=== PATIENT | male | born 1955 | race Two or more races ===

== ENCOUNTER 2020-11-25 15:37 | Emergency (ER) | payer SELFPAY ==
[2020-11-25 18:23] LABS: BILIRUBIN NEGATIVE (NEGATIVE); BLOOD NEGATIVE Ery/uL (NEGATIVE); CLARITY CLEAR (CLEAR); COLOR YELLOW (YELLOW); GLUCOSE (U) 1+ mg/dL (NORMAL); LEUKOCYTES NEGATIVE Leu/uL (NEGATIVE); NITRITE NEGATIVE (NEGATIVE); PROTEIN NEGATIVE (NEGATIVE); UROBILINOGEN 0.2 mg/dL (0.2-1.0)
[2020-11-25 20:09] LABS: BASOPHIL 0.4 % (0-2); EOSINOPHIL 0.2 % (0-5); HGB 16.5 g/dl (13.2-18.0); LYMPHOCYTE 36.3 % (15-48); MCH 31.4 pg (25.0-31.0); MCV 95.1 fL (78.0-100.0); MONOCYTE 10.2 % (0-12); NEUTROPHIL 52.5 % (41-80); NRBC 0; PLT 128 K/uL (150-400); RBC 5.26 M/uL (4.70-6.00); RDW 12.6 % (11.5-14.0); WBC 5.6 K/uL (4.0-10.5)
[2020-11-25 20:19] LABS: ALBUMIN 3.8 g/dL (3.4-5.0); BILIRUBIN - TOTAL 0.3 mg/dL (0.2-1.0); BUN/CREAT RATIO (CALC) 15.8 RATIO; CREATININE 1.77 mg/dL (0.67-1.17); GLOBULIN (CALCULATION) 4.7 g/dL; TOTAL PROTEIN 8.5 g/dL (6.4-8.2)
[2020-11-25 20:20] LABS: BILIRUBIN NEGATIVE (NEGATIVE); BLOOD NEGATIVE Ery/uL (NEGATIVE); CLARITY CLEAR (CLEAR); COLOR YELLOW (YELLOW); GLUCOSE (U) TRACE mg/dL (NORMAL); LEUKOCYTES NEGATIVE Leu/uL (NEGATIVE); NITRITE NEGATIVE (NEGATIVE); PROTEIN NEGATIVE (NEGATIVE); SPECIFIC GRAVITY 1.015 (1.001-1.030); UROBILINOGEN 0.2 mg/dL (0.2-1.0)
== END 2020-11-26 00:28 | disposition home or self-care (01) ==
LOC: FER 15:37
PROVIDERS: Emergency Medicine Emergency Medical Services; Internal Medicine
DX: U07.1 COVID-19 (principal); R91.8 Other nonspecific abnormal finding of lung field; E11.9 Type 2 diabetes mellitus without complications; I10 Essential (primary) hypertension; F17.210 Nicotine dependence, cigarettes, uncomplicated; Z23 Encounter for immunization
CPT/HCPCS: 36415; 71045; 80053; 81003; 85025; J3480; M0243; Q0244; U0002